=== PATIENT | male | born 1960 | race Caucasian/White ===

== ENCOUNTER 2024-05-16 13:35 | Outpatient (CLI) | payer MEDICARE | END 2024-05-16 13:36 | disposition home or self-care (01) | LOC: CSHULT 13:35 | PROVIDERS: ATTEND Internal Medicine | DX: R55 Syncope and collapse (principal); I34.81 Nonrheumatic mitral (valve) annulus calcification; I70.0 Atherosclerosis of aorta | CPT/HCPCS: 93306; 93880 ==